=== PATIENT | male | born 1980 | race Two or more races ===

== ENCOUNTER 2019-10-19 15:51 | Emergency (ER) | payer OTHER ==
[~2019-10-19] VITALS: Ht 175.3 cm; Wt 68.0 kg
== END 2019-10-19 21:09 | disposition home or self-care (01) ==
LOC: ER 15:51
DX: N20.0 Calculus of kidney (principal); Z03.818 Encounter for observation for suspected exposure to other biological agents ruled out

== ENCOUNTER 2021-11-22 13:41 | Emergency (ER) | payer OTHER ==
[~2021-11-22] VITALS: Ht 172.7 cm; Wt 85.7 kg
[2021-11-22] MEDS ORDERED: DICLOFENAC SODI75 MG PO (18:01)
== END 2021-11-22 18:06 | disposition home or self-care (01) ==
LOC: ER 13:41
DX: M94.0 Chondrocostal junction syndrome [Tietze] (principal)

== ENCOUNTER 2022-05-27 14:22 | Emergency (ER) | payer OTHER ==
[~2022-05-27] VITALS: Ht 175.3 cm; Wt 77.1 kg
[~2022-05-27 14:22] MED LIST: DICLOFENAC SODI75 MG PO
== END 2022-05-27 18:05 | disposition home or self-care (01) ==
LOC: ER 14:22
DX: K29.70 Gastritis, unspecified, without bleeding (principal); R07.9 Chest pain, unspecified

== ENCOUNTER 2022-07-15 17:22 | Emergency (ER) | payer OTHER ==
[~2022-07-15] VITALS: Ht 175.3 cm; Wt 76.2 kg
== END 2022-07-15 19:14 | disposition home or self-care (01) ==
LOC: ER 17:22
DX: M62.830 Muscle spasm of back (principal); M54.89 Other dorsalgia

== ENCOUNTER 2022-09-09 16:23 | Emergency (ER) | payer OTHER ==
[~2022-09-09] VITALS: Ht 175.3 cm; Wt 76.7 kg
== END 2022-09-09 18:16 | disposition home or self-care (01) ==
LOC: ER 16:23
DX: M54.59 Other low back pain (principal)